=== PATIENT | female | born 2000 | race Two or more races ===

== ENCOUNTER 2024-06-06 19:14 | Emergency (ER) | payer MEDICAID, OTHER ==
[~2024-06-06] VITALS: Ht 170.2 cm; Wt 106.2 kg
[2024-06-06 21:18] LABS: Urine Bacteria FEW /hpf (None Seen); Urine Blood Negative /uL (Negative); Urine Clarity Turbid (Clear); Urine Color Yellow (Yellow); Urine Mucus FEW (None Seen); Urine Protein, UAD 1+ (Negative); Urine Specific Gravity 1.028 (1.001-1.035); Urine Urobilinogen Normal (Negative); Urine WBC 15 /hpf (0 - 5)
[2024-06-07 02:24] VITALS: BP 131/80; PULSE 106; RESP 18; TEMP 98.4; O2SAT 100
== END 2024-06-07 02:25 | disposition home or self-care (01) ==
LOC: ER 19:14
DX: O20.0 Threatened abortion (principal); R10.2 Pelvic and perineal pain; Z3A.01 Less than 8 weeks gestation of pregnancy
CPT/HCPCS: 76801; 81001; 81025